=== PATIENT | male | born 1965 | race African-American/Black ===

== ENCOUNTER 2018-06-03 20:50 | Emergency (ER) | payer SELFPAY ==
[~2018-06-03] VITALS: Ht 177.8 cm; Wt 68.2 kg
[2018-06-03 21:25] LABS: BASOPHILS % (AUTO) 0.6 % (0.0-2.0); EOSINOPHILS % (AUTO) 0.8 % (1.0-6.0); HEMATOCRIT 47.1 % (41-53); HEMOGLOBIN 15.5 g/dL (13.5-17.5); LYMPHOCYTES # (AUTO) 0.7 K/uL (1.0-4.8); LYMPHOCYTES % (AUTO) 8.7 % (22.0-44.0); MEAN CORPUSCULAR HEMOGLOBIN 30.6 pg (26.0-34.0); MEAN CORPUSCULAR HGB CONC 32.9 G/dL (31.0-37.0); MEAN CORPUSCULAR VOLUME 93 fL (80-100); MONOCYTES # (AUTO) 0.6 K/uL (0.1-1.0); MONOCYTES % (AUTO) 6.7 % (2.0-9.0); NEUTROPHILS # (AUTO) 6.9 K/uL (1.8-7.7); NEUTROPHILS % (AUTO) 83.2 % (40.0-70.0); PLATELET COUNT (AUTO) 275 K/uL (150-450); RED BLOOD CELL COUNT(AUTO) 5.06 MIL/uL (4.50-5.90); RED CELL DISTRIBUTION WIDTH 14.4 % (11.5-14.5)
[2018-06-03] MEDS ORDERED: DiphenhydrAMINE HCL 50 MG/ML VIAL IM ONE (21:30)
[2018-06-03] MEDS ORDERED: HALOPERIDOL LACTATE 5 MG/ML VIAL IM ONE (21:30)
[2018-06-03] MEDS ORDERED: SODIUM CHLORIDE 0.9% 500 ML IV ONE (21:30)
[2018-06-03 21:38] LABS: ANION GAP 13 mmol/L (8-16); CALCIUM, TOTAL 10.3 mg/dL (8.8-10.5); CARBON DIOXIDE 27 mmol/L (22-29); CHLORIDE 102 mmol/L (98-107); CREATININE 1.86 mg/dL (0.60-1.30); GLOMERULAR FILTR. RATE CALC 38 mL/min (>60); GLUCOSE,RANDOM 86 mg/dL (70-110); POTASSIUM 3.9 mmol/L (3.5-5.1); SODIUM SERUM 142 mmol/L (136-145); UREA NITROGEN, BLOOD 22 mg/dL (7-18)
[2018-06-03] MEDS ORDERED: SODIUM CHLORIDE 0.9% 1,000 ML IV ONE ×2 (21:40→22:30)
[2018-06-03 21:45] LABS: SALICYLATE < 2.8 mg/dL (2.8-20.0)
[2018-06-03] MEDS ORDERED: KETOROLAC TROMETHAMINE 30 MG/ML VIAL IVP ONE (21:45)
[2018-06-03 21:51] LABS: B-TYPE NATRIURETIC PEPTIDE 12 pg/mL (0-100)
[2018-06-03 22:02] LABS: ALANINE AMINOTRANSFERASE 25 U/L (12-78); ALBUMIN 4.7 g/dL (3.4-5.0); ALKALINE PHOSPHATASE 81 U/L (46-116); ASPARTATE AMINOTRANSFERASE 27 U/L (15-37); BILIRUBIN,TOTAL 1.6 mg/dL (0.1-1.0); CREATINE KINASE, TOTAL ONLY 282 U/L (39-308); TOTAL PROTEIN, SERUM 8.8 g/dL (6.4-8.2)
[2018-06-03 22:15] LABS: ACETAMINOPHEN < 2 mcg/mL (10-30)
[2018-06-03 22:15] LABS: INR 1.1 (0.9-1.1); PROTHROMBIN TIME 11.5 SEC (9.4-11.6)
[2018-06-03 22:22] LABS: LACTIC ACID 4.8 mmol/L (0.4-2.0)
[2018-06-03 22:32] LABS: APPEARANCE,URINE CLOUDY (CLEAR); GLUCOSE, URINE (UA) 100 mg/dL (NEGATIVE); KETONES,URINE TRACE mg/dL (NEGATIVE); LEUKOCYTE ESTERASE ,URINE NEGATIVE (NEGATIVE); NITRATE,URINE NEGATIVE (NEGATIVE); OCCULT BLOOD,URINE MODERATE (NEGATIVE); PH,URINE 5.5 (5.0-8.0); PROTEIN,URINE SEE CONFIRM (NEGATIVE)
[2018-06-03 22:34] LABS: AMPHET/METH SCREEN,URINE POSITIVE (NEGATIVE); BARBITURATE SCREEN, URINE NEGATIVE (NEGATIVE); BENZODIAZEPINES SCREEN,URINE POSITIVE (NEGATIVE); CANNABINOID SCREEN,URINE POSITIVE (NEGATIVE); COCAINE SCREEN,URINE NEGATIVE (NEGATIVE); METHADONE SCREEN, URINE NEGATIVE (NEGATIVE); OPIATE SCREEN,URINE NEGATIVE (NEGATIVE)
[2018-06-03 22:36] LABS: PHENCYCLIDINE SCREEN,URINE NEGATIVE (NEGATIVE)
[2018-06-03 22:39] LABS: BILIRUBIN,URINE PRELIM. POSITIVE (NEGATIVE)
[2018-06-03 22:42] LABS: BACTERIA,URINE Moderate /HPF (None Seen)
[2018-06-03 22:43] LABS: COARSE GRANULAR CASTS,URINE 0-2 /LPF (None Seen); FINE GRANULAR CASTS,URINE 0-2 /LPF (None Seen)
[2018-06-03 22:44] LABS: SQUAMOUS EPITHELIAL CELL,UR Rare /LPF (None Seen)
[2018-06-03 22:45] LABS: AMORPHOUS SEDIMENT,UR Few /LPF (None Seen); HYALINE CASTS, URINE 0-2 /LPF (None Seen); SULFOSALICYLIC ACID,URINE 3+ (Negative)
[2018-06-04] MEDS ORDERED: CefTRIAXone SODIUM 1 GM in DEXTROSE 5%-WATER 10 ML IV ONE (01:45)
[2018-06-04 07:11] VITALS: BP 121/65
== END 2018-06-04 07:38 | disposition home or self-care (01) ==
LOC: EMS 20:53
DX: E86.0 Dehydration (principal); F15.10 Other stimulant abuse, uncomplicated; R79.1 Abnormal coagulation profile
CPT/HCPCS: 36415; 70450; 71045; 80053; 80307; 81001; 82550; 83605; 83880; 84484; 85025; 85610; 85730; 87040; 87086; 93005 ×2; 96361; 96372; 96374; 96375; 99285; G0480; G0481; J0696; J1200; J1630; J1885; J7030; J7040; J7060; 51701

== ENCOUNTER 2018-06-25 11:45 | Emergency (ER) | payer OTHER ==
[~2018-06-25] VITALS: Ht 177.8 cm; Wt 81.8 kg
[2018-06-25] MEDS ORDERED: FLUORESCEIN SODIUM 1 MG STRIP ONE (14:52)
[2018-06-25 14:56] VITALS: BP 110/75
[2018-06-25] MEDS ORDERED: IBUPROFEN 600 MG TABLET PO ONE (15:15)
== END 2018-06-25 15:37 | disposition home or self-care (01) ==
LOC: EDUNIT# 11:45 → EMS 11:52
DX: S04.52XA Injury of facial nerve, left side, initial encounter (principal); F17.210 Nicotine dependence, cigarettes, uncomplicated; X58.XXXA Exposure to other specified factors, initial encounter; Y93.89 Activity, other specified; Y92.89 Other specified places as the place of occurrence of the external cause; Y99.8 Other external cause status